=== PATIENT | male | born 1935 | race Caucasian/White ===

== ENCOUNTER 2020-02-25 13:22 | Outpatient (CLI) | payer MEDICARE, OTHER ==
[2020-02-25 18:40] LABS: BASOPHILS # (AUTO) 0.1 10^3/uL (0.0-0.1); BASOPHILS % (AUTO) 0.7 %; EOSINOPHILS # (AUTO) 0.3 10^3/uL (0.0-0.7); EOSINOPHILS % (AUTO) 3.3 %; HGB - HEMOGLOBIN 14.2 g/dL (14.0-18.0); LYMPHOCYTES # (AUTO) 1.6 10^3/uL (1.5-3.5); LYMPHOCYTES % (AUTO) 19.8 %; MEAN CORPUSCULAR HEMOGLOBIN 33.5 pg (27.0-31.0); MEAN CORPUSCULAR HGB CONC 33.7 g/dL (32.0-36.0); MEAN CORPUSCULAR VOLUME 99.3 fL (80.0-94.0); MEAN PLATELET VOLUME 10.7 fL (7.4-11.4); MONOCYTES # (AUTO) 0.6 10^3/uL (0.0-1.0); MONOCYTES % (AUTO) 7.8 %; NEUTROPHILS # (AUTO) 5.4 10^3/uL (1.5-6.6); PLT - PLATELET COUNT 315 10^3/uL (130-450); RED BLOOD COUNT 4.24 10^6/uL (4.70-6.10); RED CELL DISTRIBUTION WIDTH 12.7 % (12.0-15.0); WHITE BLOOD COUNT 8.2 x10^3/uL (4.8-10.8)
[2020-02-25 18:58] LABS: ALBUMIN/GLOBULIN RATIO 1.1 (1.0-2.2); BILIRUBIN,TOTAL 1.6 mg/dL (0.2-1.0); CALCIUM 9.5 mg/dL (8.5-10.3); TOTAL PROTEIN 7.8 g/dL (6.7-8.2)
== END 2020-02-25 13:23 | disposition home or self-care (01) ==
LOC: LAB.WCP 13:22
PROVIDERS: ATTEND Family Medicine
DX: K85.10 Biliary acute pancreatitis without necrosis or infection (principal)
CPT/HCPCS: 36415; 80053; 85025

== ENCOUNTER 2020-03-10 09:06 | Outpatient (CLI) | payer MEDICARE, OTHER ==
[2020-03-10 09:29] LABS: ALBUMIN 4.3 g/dL (3.2-5.5); ALBUMIN/GLOBULIN RATIO 1.4 (1.0-2.2); BILIRUBIN,TOTAL 1.4 mg/dL (0.2-1.0); CALCIUM 9.4 mg/dL (8.5-10.3); TOTAL PROTEIN 7.4 g/dL (6.7-8.2)
== END 2020-03-10 09:07 | disposition home or self-care (01) ==
LOC: LAB 09:06
PROVIDERS: ATTEND Family Medicine
DX: K85.10 Biliary acute pancreatitis without necrosis or infection (principal)
CPT/HCPCS: 36415; 80053

== ENCOUNTER 2020-12-10 08:26 | Outpatient (CLI) | payer MEDICARE, OTHER | END 2020-12-10 08:27 | disposition critical access hospital (66) | LOC: EMS 08:26 | DX: G81.94 Hemiplegia, unspecified affecting left nondominant side (principal) | CPT/HCPCS: A0425; A0429 ==

== ENCOUNTER 2020-12-10 08:29 | Emergency (ER) | payer MEDICARE, OTHER ==
--- NOTE | 2020-12-10 08:39 | ED Physician Documentation ---
PD HPI FOCAL NEURO - Stated complaint Stated Complaint: CODE STROKE - History obtained from History obtained from: Patient, EMS - History of Present Illness Timing - onset: Today Timing - duration: Minutes Timing - details: Abrupt onset, Still present Severity of deficit: Severe Weakness: Arm, Hand, Leg, Foot, Left Associated symptoms: No: Headache, Nausea / vomiting, Seizure, Syncope, Fall, Head injury, Chest pain, Neck pain, Back pain Contributing factors: negative: Anticoagulated Baseline status: positive: A&OX3, ambulatory, indep Similar symptoms before: Has not had sx before Recently seen: Not recently seen - Additional information Additional information: 85-year-old male awoke in his normal state went outside to get the paper came back inside and began to develop weakness to the left lower extremity this became profound he was able unable to stand and 911 was called. In route to the hospital the patient's hand became week. He denies any visual field defect or asymmetry to his face. Review of Systems Constitutional: denies: Fever Eyes: denies: Loss of vision, Decreased vision, Photophobia, Discharge, Irritation Ears: denies: Ear pain Nose: denies: Rhinorrhea / runny nose, Congestion Throat: denies: Oral lesions / sores, Sore throat Cardiac: denies: Chest pain / pressure Respiratory: denies: Dyspnea, Cough GI: denies: Abdominal Pain, Nausea, Vomiting, Constipation, Diarrhea : denies: Dysuria, Frequency Skin: denies: Rash Musculoskeletal: denies: Neck pain, Back pain, Extremity pain Neurologic: reports: Focal weakness. denies: Generalized weakness, Numbness, Difficulty speaking, Near syncope PD PAST MEDICAL HISTORY - Past Medical History Cardiovascular: Hypertension, High cholesterol Musculoskeletal: Gout - Past Surgical History Past Surgical History: Yes Ortho: Knee replacement - Present Medications Home Medications: Ambulatory Orders Medication Instructions Recorded Confirmed Atenolol 50 mg DAILY 01/12/15 01/12/15 Losartan [Cozaar] 25 mg DAILY 01/12/15 01/12/15 Allopurinol [Zyloprim] 300 mg DAILY 12/10/20 12/10/20 Hydrochlorothiazide 25 mg DAILY 12/10/20 12/10/20 - Allergies Allergies/Adverse Reactions: Allergies Allergy/AdvReac Type Severity Reaction Status Date / Time No Known Drug Allergies Allergy Verified 12/10/20 09:01 - Social History Does the pt smoke?: No Smoking Status: Never smoker Does the pt drink ETOH?: Yes Does the pt have substance abuse?: No - Immunizations Immunizations are current?: Yes PD ED PE NORMAL - Vitals Vital signs reviewed: Yes - General General: Alert and oriented X 3, No acute distress, Well developed/nourished - HEENT HEENT: Atraumatic, PERRL, EOMI - Neck Neck: Supple, no meningeal sign, No bony TTP - Cardiac Cardiac: RRR, No murmur - Respiratory Respiratory: No respiratory distress, Clear bilaterally - Abdomen Abdomen: Normal bowel sounds, Soft, Non tender, Non distended, No organomegaly - Back Back: No CVA TTP, No spinal TTP - Derm Derm: Normal color, Warm and dry, No rash - Extremities Extremities: No deformity, No edema - Neuro Neuro: Alert and oriented X 3, 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 but is able to orient his finger to my finger for cerebellar testing.) Eye Opening: Spontaneous Motor: Obeys Commands Verbal: Oriented GCS Score: 15 - Psych Psych: Normal mood, Normal affect NIHSS - Time Time: 08:39 - Level of Consciousness Level of consciousness: (0) Alert, Keenly responsive LOC Questions: (0) Answers both Q's correct LOC Commands: (0) Performs both correctly - Gaze Best Gaze: (0) Normal - Visual Visual: (0) No loss - Facial Palsy Facial Palsy: (0) Normal, symmetrical movement - Motor Arms (both separate) Motor Arm (right): (0) No drift Motor Arm (left): (2) Some effort against gravity - Motor Legs (both separate) Motor Leg (right): (0) No drift Motor Leg (left): (3) No effort against gravity - Limb Ataxia Limb Ataxia: (1) Present in 1 limb - Sensory Sensory: (0) Normal - Best Language Best Language: (0) No aphasia - Dysarthria Dysarthria: (0) Normal - Extinction and Inattention (formally neg Extinction and inattention: (0) No abnormality - Total Score/Results Total Score/Result: 6 Results - Vitals Vitals: Vital Signs - 24 hr 12/10/20 12/10/20 12/10/20 08:30 08:53 09:00 Temperature 36.3 C L Heart Rate 65 65 61 Respiratory 16 16 16 Rate Blood Pressure 175/104 H 142/75 H 148/69 H O2 Saturation 98 98 100 12/10/20 12/10/20 12/10/20 09:39 09:44 10:43 Temperature 36.6 C Heart Rate 66 60 60 Respiratory 14 14 14 Rate Blood Pressure 156/67 H 153/75 H 165/75 H O2 Saturation 99 99 99 Oxygen O2 Source Room air - EKG (time done) 0907 Rate: Rate (enter#) (60) Rhythm: NSR Intervals: Prolonged IA, Wide QRS QRS: LVH Compare to prior EKG: Old EKG unavailable Computer interpretation: Agree with computer - Labs Labs: Laboratory Tests 12/10/20 12/10/20 09:06 09:06 WBC 5.7 RBC 4.40 L Hgb 14.4 Hct 42.1 MCV 95.7 H MCH 32.7 H MCHC 34.2 RDW 13.3 Plt Count 186 MPV 9.6 Neut # (Auto) 3.7 Lymph # (Auto) 1.4 L [place] # (Auto) 0.4 Eos # (Auto) 0.1 Baso # (Auto) 0.0 Absolute Nucleated RBC 0.00 Nucleated RBC % 0.0 Sodium 136 Potassium 3.8 Chloride 104 Carbon Dioxide 26 Anion Gap 6.0 BUN 16 Creatinine 0.9 Estimated GFR (MDRD) 80 L Glucose 97 Calcium 8.8 Total Bilirubin 0.9 AST 22 ALT 18 Alkaline Phosphatase 58 Total Protein 6.7 Albumin 4.0 Globulin 2.7 Albumin/Globulin Ratio 1.5 Lipase 25 - Rads (name of study) CT head w/o Radiology: Prelim report reviewed (Impression: No CT evidence of acute infarct or acute intracranial hemorrhage.), EMP read indepedently, See rad report chest Radiology: Prelim report reviewed (Impression: No acute cardiopulmonary process demonstrated radiographically.), EMP read indepedently, See rad report neck angio Radiology: Prelim report reviewed (: Approximately 70% narrowing seen involving the right proximal internal carotid artery, with abundant soft plaque. Approximately 20% narrowing involving the left proximal internal carotid artery.), Final report received (Incidental note is made of: Tortuous distal internal carotid arteries tortuous proximal common carotid arteries at least moderate lower cervical spine degenerative change), EMP read indepedently, See rad report Procedures - IVC sono (time) 0936 Bedside IVC sono: IVC measures (cm) (1.7), Euvolemia PD MEDICAL DECISION MAKING - ED course Complexity details: reviewed old records, reviewed results, re-evaluated patient, considered differential, d/w patient ED course: 85-year-old male with history of hypertension comes into the emergency department with acute left-sided deficit to his left lower extremity that is dense and less so to the left upper extremity. During his stay in the emergency department the left upper extremity improves somewhat the left lower extremity remains densely paretic. The patient is inside the window for administration of TPA and has no contraindications to its use (he is not on blood thinners, he has not had surgery or an injury in the past 6 months, he does not have bleeding. His blood pressure is in range and the Telestroke Dr. Dr. Rice recommends use of the alteplase and a dose of 9mg is given bolus with 81mg infusion over one hour. The patient has steady improvement with the use of his left upper arm and hand and improvement in the lower extremity as well. He is now able to lift this against gravity and hold in place. He feels that the limb is still clumsy and not moving the way he wants it to. Departure - Departure Disposition: 02 Transfer Acute Care Hosp Clinical Impression: Cerebrovascular accident (CVA) Qualifiers: CVA mechanism: unspecified Qualified Code(s): I63.9 - Cerebral infarction, unspecified Condition: Stable
--- OUTSIDE RECORDS SUMMARY | 2020-12-10 09:03 | EXTERNAL MEDICAL SUMMARY RPT | Continuity of Care Document ---
:1935 Demographics Phone Unavailable Preferred Language Unknown Marital Status Unknown Uatsdin Affiliation Unknown Race Unknown Ethnic Group Unknown Author Organization [facility] Address [address] [phone] Phone Allergies Encounters Medications Problems Results
--- NOTE | 2020-12-10 09:06 | CT Report ---
PROCEDURE: Head W/O Stroke Protocol INDICATIONS: Left-sided weakness TECHNIQUE: Noncontrast 4.5 mm thick angled axial sections acquired from the foramen magnum to the vertex, with c oronal reformats. For radiation dose reduction, the following was used: automated exposure control, adjustment of mA and/or kV according to patient size. COMPARISON: FINDINGS: Image quality: Excellent. CSF spaces: Basal cisterns are patent. No extra-axial fluid collections. Ventricles are normal in size and shape. Brain: Global cerebral volume loss and chronic microvascular ischemic changes. No midline shift. No intracranial masses or hemorrhage. Venegas-white matter interface is normal. No acute intracranial hemo rrhage. Skull and face: Calvarium and visualized facial bones are intact, without suspicious lesions. Sinuses: Visualized sinuses and mastoids are clear. IMPRESSION: No CT evidence of acute infarct or acute intracranial hemorrhage. This study fulfills neurological imaging criteria for inclusion or exclusion of acute stroke therapie s based on available published neurological imaging guidelines. Reviewed by: Boni Smith MD on 12/10/2020 9:05 AM PDT Approved by: Boni Smith MD on 12/10/2020 9:05 AM PDT Station ID: [id number]
[2020-12-10 09:11] LABS: BASOPHILS % (AUTO) 0.4 %; EOSINOPHILS # (AUTO) 0.1 10^3/uL (0.0-0.7); EOSINOPHILS % (AUTO) 2.5 %; HCT - HEMATOCRIT 42.1 % (42.0-52.0); HGB - HEMOGLOBIN 14.4 g/dL (14.0-18.0); LYMPHOCYTES # (AUTO) 1.4 10^3/uL (1.5-3.5); LYMPHOCYTES % (AUTO) 25.1 %; MEAN CORPUSCULAR HEMOGLOBIN 32.7 pg (27.0-31.0); MEAN CORPUSCULAR HGB CONC 34.2 g/dL (32.0-36.0); MEAN CORPUSCULAR VOLUME 95.7 fL (80.0-94.0); MEAN PLATELET VOLUME 9.6 fL (7.4-11.4); MONOCYTES # (AUTO) 0.4 10^3/uL (0.0-1.0); NEUTROPHILS # (AUTO) 3.7 10^3/uL (1.5-6.6); NEUTROPHILS % (AUTO) 64.5 %; PLT - PLATELET COUNT 186 10^3/uL (130-450); RED CELL DISTRIBUTION WIDTH 13.3 % (12.0-15.0); WHITE BLOOD COUNT 5.7 x10^3/uL (4.8-10.8)
--- NOTE | 2020-12-10 09:12 | CT Report ---
PROCEDURE: ANGIO NECK W INDICATIONS: L sided facial droop, L neck pain CONTRAST: IV CONTRAST: Optiray 320 ml: 80 PO CONTRAST: *NO PO CONTRAST TECHNIQUE: After the administration of intravenous contrast, 1.5 mm axial sections acquired from the aortic arch to the [place] of [place]. Coronal 3-D maximum intensity projection (MIP) and/or volume rendering ref ormats were then performed. For radiation dose reduction, the following was used: automated exposur e control, adjustment of mA and/or kV according to patient size. COMPARISON: Correlation is made with noncontrast head CT, 12/10/2020. FINDINGS: Image quality: Excellent. Carotid system: The great vessels demonstrate a conventional anatomy as they arise from the aortic a rch. The origins of the common carotid arteries appear patent. The common carotid arteries demonstr ate normal calibers. The proximal common carotid arteries are tortuous. The bifurcation regions demo nstrate atherosclerotic irregularity and calcification. There is approximate 70% narrowing seen invol ving the right proximal internal carotid artery, with abundant soft plaque. On the left, there is mary roximately 20% narrowing. The more distal internal carotid arteries demonstrate normal caliber, altho ugh they are highly tortuous, particularly distally. Posterior circulation: The origins of the vertebral arteries appear patent. The more superior porti ons of the vertebral arteries demonstrate normal course and caliber. They join to form a normal appe aring basilar artery. Soft tissues: Visualized neck soft tissues demonstrate no suspicious abnormalities. The thyroid is small in size and there are no incidental findings. Bones: No suspicious bony lesions. Visualized cervical spine appears normally aligned. There is a t least moderate lower cervical spine degenerative change. IMPRESSION: Approximately 70% narrowing seen involving the right proximal internal carotid artery, with abundant soft plaque. Approximately 20% narrowing involving the left proximal internal carotid artery. Incidental note is made of: Tortuous distal internal carotid arteries Tortuous proximal common carotid arteries At least moderate lower cervical spine degenerative change The estimate of stenosis included in the report of the imaging study was calculated using the NASCET method Reviewed by: Lowell Tierney MD on 12/10/2020 8:11 AM DIEGO Approved by: Lowell Tierney MD on 12/10/2020 8:11 AM AKELVIN Station ID: [id number]
[2020-12-10 09:25] LABS: ALBUMIN/GLOBULIN RATIO 1.5 (1.0-2.2); BILIRUBIN,TOTAL 0.9 mg/dL (0.2-1.0); CALCIUM 8.8 mg/dL (8.5-10.3); CREATININE 0.9 mg/dL (0.6-1.2); POTASSIUM 3.8 mmol/L (3.5-5.0); TOTAL PROTEIN 6.7 g/dL (6.7-8.2)
[2020-12-10] MEDS ORDERED: WATER FOR INJECTION STERILE IV STA (09:28)
[2020-12-10] MEDS ORDERED: ALTEPLASE IV STA (09:28)
[2020-12-10] MEDS ORDERED: ALTEPLASE 81 MG in WATER FOR INJECTION,STERILE 100 ML IV STA (09:31)
--- NOTE | 2020-12-10 09:31 | XRAY Report ---
PROCEDURE: Chest 1 View X-Ray INDICATIONS: Chest pain TECHNIQUE: One view of the chest was acquired. COMPARISON: None FINDINGS: Surgical changes and devices: None. Lungs and pleura: No pleural effusions or pneumothorax. Lungs are clear. Mediastinum: Mediastinal contours appear normal. Heart size is normal. Bones and chest wall: No suspicious bony lesions. Overlying soft tissues appear unremarkable. IMPRESSION: No acute cardiopulmonary process demonstrated radiographically. Reviewed by: Boni Smith MD on 12/10/2020 9:29 AM PDT Approved by: Boni Smith MD on 12/10/2020 9:29 AM PDT Station ID: [id number]
[2020-12-10] MEDS ORDERED: IOVERSOL 320 100 ML VIAL IVP ONE (09:32)
--- NOTE | 2020-12-10 09:38 | CT Report ---
PROCEDURE: ANGIO HEAD W/WO INDICATIONS: L sided facial droop CONTRAST: IV CONTRAST: Optiray 320 ml: 80 PO CONTRAST: *NO PO CONTRAST TECHNIQUE: After the administration of intravenous contrast, 1 mm thick sections acquired through the [place] of [place]. Postcontrast 4.5 mm thick sections then re-acquired from the foramen magnum to the vertex. 3-dimensional hmlutzq-hdfynqupa-ieypojovli (MIP) and/or volume rendering reformats were acquired of t he central intracranial vasculature. For radiation dose reduction, the following was used: automate d exposure control, adjustment of mA and/or kV according to patient size. COMPARISON: Correlation is made with the prior noncontrast head CT as well as the accompanying neck angiogram, 12/10/2020. FINDINGS: Image quality: Excellent. Anterior circulation: Intracranial internal carotid arteries demonstrate atherosclerotic calcificati on and irregularity, with 30-40% narrowing seen on each side. The flow within the paired anterior cer ebral arteries is normal and symmetric. The flow within the middle cerebral arteries is normal and s ymmetric. The anterior communicating artery is seen. No aneurysms are seen. Posterior circulation: Visualized portions of the vertebral arteries demonstrate normal caliber, and join to form a normal appearing basilar artery. Flow within the posterior cerebral arteries is norm al and symmetric. No aneurysms are seen. CSF spaces: Ventricles are normal in size and shape. Basal cisterns are patent. No extra-axial flu id collections. Brain: No midline shift. No intracranial bleeds or masses. Venegas-white matter interface appears int act. Skull and face: Calvarium and facial bones appear intact, without suspicious lesions. Sinuses: Visualized sinuses and mastoids are clear. IMPRESSION: No significant intracranial arterial abnormalities are seen. No masses or abnormal enhancement can be seen. Reviewed by: Lowell Tierney MD on 12/10/2020 8:37 AM DIEGO Approved by: Lowell Tierney MD on 12/10/2020 8:37 AM DIEGO Station ID: [id number]
[2020-12-10 12:19] VITALS: BP 157/88
[2020-12-10 13:59] LABS: B. PARAPERTUSSIS- RESP PCR PAN NOT DETECTED; B. PERTUSSIS- RESP PCR PANEL NOT DETECTED; C. PNEUMONIAE- RESP PCR PANEL NOT DETECTED; CORONAVIRUS 229E-RESP PCR NOT DETECTED; CORONAVIRUS HKU1-RESP PCR NOT DETECTED; CORONAVIRUS NL63-RESP PCR NOT DETECTED; CORONAVIRUS OC43-RESP PCR NOT DETECTED; HUMAN METAPNEUMOVIRUS NOT DETECTED; INFLUENZA A- RESP PCR PANEL NOT DETECTED; INFLUENZA B - RESP PCR PANEL NOT DETECTED; M. PNEUMONIAE- RESP PCR PANEL NOT DETECTED; PARAINFLUENZA VIRUS 1 NOT DETECTED; PARAINFLUENZA VIRUS 2 NOT DETECTED; PARAINFLUENZA VIRUS 3 NOT DETECTED; PARAINFLUENZA VIRUS 4 NOT DETECTED; RHINOVIRUS/ENTEROVIRUS NOT DETECTED; RSV- RESP PCR PANEL NOT DETECTED; SARS-CoV-2 -RESP PCR PANEL NOT DETECTED
== END 2020-12-10 12:53 | disposition short-term general hospital (02) ==
LOC: EDUNIT# → ED 08:29
DX: I63.9 Cerebral infarction, unspecified (principal); R29.706 NIHSS score 6; I10 Essential (primary) hypertension; Z20.822 Contact with and (suspected) exposure to COVID-19
CPT/HCPCS: 36415; 37195; 70450; 70496; 70498; 71045; 80053; 83690; 85025; 87631; 93005; 99285; J2997; Q9967; 0202U